=== PATIENT | male | born 1980 | race Caucasian/White ===

== ENCOUNTER 2021-07-19 15:07 | Observation (INO) ==
--- NOTE | 2021-07-19 15:18 | Emergency Department Note ---
Impression & Plan TIA (transient ischemic attack), Dizziness, HTN (hypertension) ED Provider Note NAME: MATTY ADAMS AGE: 41 SEX: M : 1980 ARRIVES VIA: Walk-In INFORMANT: Patient, ED PROVIDER(S): Manuel Mejia MD Chief Complaint: HPI: Patient presents due to concern for evaluation of some ambulatory dysfunction, heavy time as well as some difficulty with raising the left side of his mouth. The patient states that when he woke up this morning he got in bed and stumbled a bit to where he felt a little off. Patient states that he subsequently did develop some tongue heaviness and stated that he was unsure as whether or not he could hear me left side of his mouth up compared to his right. The patient states that lasted about an hour. Patient denies any fevers chills chest pain shortness of breath. The patient does have a history of hypertension but no other medical problems. Patient denies any alcohol tobacco or drug use. Patient has had some dizziness. Patient denies any nausea or vomiting. The patient denies any numbness tingling or focal weakness. Patient denies any recent falls or trauma. He does not take blood thinning medications. Patient is vaccinated for COVID-19 denies any infectious symptoms. ROS: See HPI for pertinent positives and negatives. A total of 10 systems were reviewed and otherwise negative. Past medical history: See below Surgical history: See below Social history: See below Physical Exam: GENERAL: NAD, wearing glasses, non-toxic. EYE EXAM: Normal conjunctiva. PERRL, no anisocoria and EOM's grossly intact w/o pain. OROPHARYNX: Moist mucus membranes. Grossly normal dentition. NECK: Supple, no nuchal rigidity, no adenopathy, non-tender. No signs of meningismus. FROM of the neck with good chin to chest and neck extension. No stridor. No carotid bruits auscultated. LUNGS: Clear to auscultation. Normal chest wall mechanics. HEART: NSR, no MRG. ABDOMEN: Abdomen soft, non-tender, normo-active bowel sounds, no masses, no rebound or guarding. BACK: No CVA TTP. SKIN: No rashes and no bruising. UPPER EXTREMITIES: Upper extremities are grossly normal. LOWER EXTREMITIES: Grossly normal, no edema. NEURO EXAM: A&O x3, cranial nerves II-XII grossly intact, normal speech, moves all 4 extremities on command w/o issue. Good finger to nose, no drift, no sensory deficits. Differential diagnoses: Infection, dehydration, metabolic abnormality, hypo/hyperglycemia, electrolyte disturbance, anemia, hypoxia, cardiac sources, intracerebral event, toxicologic, neurologic, as well as other pathologies. Course: Patient was seen and evaluated the bedside. Full history physical exam was performed. EKG interpreted by me Normal sinus rhythm, rate of 74, normal intervals, normal axis, T wave inversion in V2. Imaging Studies: See Below Cardiac monitoring: An order was placed for continuous cardiac monitoring. The monitor shows a rate of 75 with sinus rhythm. MDM: Patient was seen due to concern for difficulty with raising the left side of his mouth as well as some tongue heaviness. The patient has no acute stroke like symptoms at this time. NIH is 0. Patient did have bladder completed along with an EKG and CT of the head. Patient's blood work shows a normal white count H&H and platelet count. Patient's kidney function is unremarkable. CT head negative. Patient has had no recurrence of symptoms. I did speak to the on-call neurologist Dr. Sarabia who recommended the patient be admitted for MRI of the brain and angiography of the head neck. Patient does have a contrast allergy to iodine. Patient was ordered an MR combo angiography as opposed to CT angiography. Patient was ordered aspirin. Patient was admitted to the [facility] service. I did speak with YUMI Olvera and the patient was admitted by Dr. Gutierrez. Past Med/Surg History Medical History GERD (gastroesophageal reflux disease) H/O: HTN (hypertension) Surgical History History of dental surgery Family History Other Diabetes Hypertension Social History Smoking Status: Former smoker Tobacco Type: E-cigarettes / Vaping Hx Alcohol Use: No Hx Substance Use: Yes Non-Prescribed Medications: Marijuana Feels Safe at Home: Yes Immunizations: Vaccinated for COVID-19 Allergies Allergies Allergy/AdvReac Type Severity Reaction Status Date / Time iodine Allergy Anaphylaxis Unverified 07/19/21 17:27 shellfish derived Allergy Anaphylaxis Unverified 07/19/21 17:27 Home Meds Home Medications Medication Instructions Recorded Confirmed amlodipine 5 mg tablet 5 mg PO QPM 07/19/21 07/19/21 budesonide-formoterol HFA 80 2 puff INHALATION BID PRN 07/19/21 07/19/21 mcg-4.5 mcg/actuation aerosol inhaler (Symbicort) loratadine 10 mg tablet (Claritin) 10 mg PO DAILY PRN 07/19/21 07/19/21 omeprazole 20 mg capsule,delayed 20 mg PO DAILYBB 07/19/21 07/19/21 release Results & Data (ED) Vital Signs Vital Signs - 24 hr 07/19/21 15:13 07/19/21 15:31 07/19/21 17:40 Temperature 37.0 C 37.0 C Temperature Source Temporal Artery Scan Oral Pulse Rate 80 Pulse Rate [Right Finger] 67 67 Pulse Rhythm [Right Finger] Regular Pulse Strength [Right Finger] Normal Respiratory Rate 20 16 15 Respiratory Effort / Characteristics Non-Labored Spontaneous Non-Labored Respiratory Depth Normal Normal Normal Respiratory Pattern Regular Blood Pressure 147/103 H Blood Pressure [Right Arm] 163/99 H 163/99 H Blood Pressure Mean 117 Blood Pressure Mean [Right Arm] 120 120 Blood Pressure Position [Right Arm] Lying Pulse Oximetry 98 97 97 Oxygen Delivery Method Room Air Room Air Sepsis Recent Fever Within 48 Hours No Sepsis New/Unexplained Change in Mental Status No Sepsis Action Taken by Nursing No Action Required 07/19/21 18:09 Temperature Temperature Source Pulse Rate Pulse Rate [Right Finger] 66 Pulse Rhythm [Right Finger] Regular Pulse Strength [Right Finger] Respiratory Rate 16 Respiratory Effort / Characteristics Non-Labored Respiratory Depth Normal Respiratory Pattern Blood Pressure Blood Pressure [Right Arm] 164/98 H Blood Pressure Mean Blood Pressure Mean [Right Arm] 120 Blood Pressure Position [Right Arm] Lying Pulse Oximetry 98 Oxygen Delivery Method Room Air Sepsis Recent Fever Within 48 Hours Sepsis New/Unexplained Change in Mental Status Sepsis Action Taken by Snf Medications Current Medication List: was personally reviewed by me Laboratory Data Attestation: I reviewed the patient's lab results. Result diagrams: 07/19/21 15:43 07/19/21 15:43 Lab Results 07/19/21 07/19/2107/19/22 Range/Units 15:43 15:43 18:22 WBC 9.27 (4.8-10.8) K/uL RBC 4.98 (4.7-6.1) M/uL Hgb 14.4 (14.0-18.0) g/dL Hct 42.3 (42-52) % MCV 84.9 (80-100) fL MCH 28.9 (25-34) pg MCHC 34.0 (32-36) g/dL RDW Std Deviation 41.8 (36.4-46.3) fL RDW Coeff of Herber 13.5 (11.5-14.5) % Plt Count 327 (130-400) K/uL MPV 10.0 (7.4-10.4) fL Immature Gran % (Auto) 0.2 % Neut % (Auto) 55.9 % Lymph % (Auto) 34.2 % [place] % (Auto) 8.0 % Eos % (Auto) 1.5 % Baso % (Auto) 0.2 % Neut # (Auto) 5.18 (1.4-6.5) K/uL Lymph # (Auto) 3.17 (1.2-3.4) K/uL [place] # (Auto) 0.74 H (0.11-0.59) K/uL Eos # (Auto) 0.14 (0-0.5) K/uL Baso # (Auto) 0.02 (0-0.2) K/uL Immature Gran # (Auto) 0.02 (0.00-0.02) K/uL Sodium 140 (136-145) mmol/L Potassium 3.6 (3.5-5.1) mmol/L Chloride 103 (98-107) mmol/L Carbon Dioxide 30 (21-32) mmol/L Anion Gap 7 (3-11) BUN 15 (6-23) mg/dl Creatinine 1.19 (0.6-1.4) mg/dl Est Cr Clr Drug Dosing 89.2 ml/min Est GFR ( Amer) 88.6 ml/min Est GFR (Non-Af Amer) 76.5 ml/min BUN/Creatinine Ratio 12.6 (10-20) Glucose 105 H (70-99(Fasting)) mg/dl Calcium 9.4 (8.5-10.1) mg/dl Magnesium 1.7 (1.7-2.4) mg/dl Total Bilirubin 0.2 (0.2-1.0) mg/dl AST 21 (13-39) U/L ALT 29 (7-52) U/L Alkaline Phosphatase 114 H (34-104) U/L Total Protein 7.2 (6.0-8.3) gm/dl Albumin 4.5 (3.4-5.0) gm/dl Globulin 2.7 (2.5-4.0) gm/dl Albumin/Globulin Ratio 1.7 (0.9-2) SARS-CoV-2, RNA, NAAT NEGATIVE (NEGATIVE) Administered Medications Discontinued Medications Aspirin (Aspirin Chew 324 Mg) 324 mg PO NOW STA Stop: 07/19/21 17:48 Last Admin: 07/19/21 18:07 Dose: 324 mg Documented by: [id number] Gadobutrol (Gadobutrol 65ml Vial) 8.5 ml IV ONCE ONE Stop: 07/19/21 19:38 Last Admin: 07/19/21 19:34 Dose: 8.5 ml Documented by: [id number] Imaging Data Radiologist's Impression: Head CT 07/19/21 15:36 CT OF THE HEAD WITHOUT CONTRAST CLINICAL HISTORY: gait imbalance, ?speech COMPARISON STUDY: No previous studies for comparison. CT DOSE: 537.48 mGy.cm TECHNIQUE: Helical axial images of the head were obtained without IV contrast. Automated exposure control was utilized for the study. A dose lowering technique was utilized adhering to the principles of ALARA. FINDINGS: No acute intracranial hemorrhage, midline shift or mass effect is present. The ventricular system is unremarkable. The basal cisterns are patent. No extra-axial collections are present. There are no findings to suggest acute dural sinus thrombosis or acute territorial infarct. No significant calvarial abnormalities are present. Visualized portions of the sinuses and mastoid air cells are clear. IMPRESSION: No acute intracranial findings. ACT 112: Negative or not required by law. Electronically signed by: Júnior Corbin M.D. 07/19/2021 4:05 PM Brain MRI 07/19/21 17:49 MRI OF THE BRAIN WITHOUT CONTRAST CLINICAL HISTORY: TIA symptoms COMPARISON STUDY: Head CT performed earlier today. TECHNIQUE: Utilizing a 1.5 Evonne magnet and dedicated coil, multiplanar, multiecho imaging of the brain was performed without IV contrast. FINDINGS: There are no foci of restricted diffusion to suggest acute infarct. No acute intracranial hemorrhage, midline shift or mass effect is present. Brain findings normal. Ventricular system is normal. Basal cisterns are patent. There are no extra axial collections. No intracranial masses are identified on this unenhanced exam. Flow-voids for the major intracranial vessels are present. There are a few small white matter T2 hyperintense foci that measure up to 2 mm. These are of doubtful significance. Calvarial signal is normal. Orbits are unremarkable on unenhanced exam. There is no evidence for sinusitis. No mastoid fluid. IMPRESSION: No acute intracranial findings. Unremarkable unenhanced MRI of the brain. ACT 112: Negative or not required by law. Electronically signed by: Júnior Corbin M.D. 07/19/2021 7:30 PM Head MRA 07/19/21 17:49 MRA OF THE INTRACRANIAL CIRCULATION WITHOUT CONTRAST CLINICAL HISTORY: TIA symptoms COMPARISON STUDY: None. TECHNIQUE: Utilizing a 1.5 Evonne magnet and 3-D [id number] technique, unenhanced MRA of the intracranial circulation was obtained. FINDINGS: The bilateral M1, M2, A1 and A2 segments are patent. There is no central vessel occlusion. Note is made of a tiny 2 mm saccular aneurysm arising from the inferomedial aspect of the ophthalmic portion of the right internal carotid artery. No additional intracranial aneurysms are present. Posterior circulation is intact. There is an anterior communicating artery. Bilateral posterior communicating arteries are present. There is no dissection within the intracranial vessels. IMPRESSION: 1. No central vessel occlusion. 2. 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 ACT 112: Negative or not required by law. Electronically signed by: Júnior Corbin M.D. 07/19/2021 7:40 PM Neck MRA 07/19/21 17:49 MR angio neck wo/w con CLINICAL HISTORY: TIA symptoms COMPARISON STUDY: No previous studies for comparison. TECHNIQUE: Unenhanced and contrast-enhanced MRA of the neck was performed. Intravenous injection of 8.5 cc of Gadavist was uneventful. FINDINGS: The bilateral common carotid, cervical internal carotid and vertebral arteries are patent. Bilateral carotid bifurcations are unremarkable. No stenosis within these vessels is noted. There is no dissection by MRI. MRA of the head will be reported separately. There is no aneurysm within the neck. IMPRESSION: Unremarkable MRA of the neck. ACT 112: Negative or not required by law. Electronically signed by: Júnior Corbin M.D. 07/19/2021 8:01 PM Discharge Plan Visit Data Chief Complaint: TIA Symptoms Stated Complaint: DR REFERRED, DIZZINESS, SLURRED SPEAK, LIP DROOP ED Provider: Manuel Mejia Discharge Problem: TIA (transient ischemic attack), Dizziness, HTN (hypertension) Patient Disposition: Admitted As Inpatient Discharge Instructions Interventions: ED Discharge Assessment Last Done: 07/19/21 19:34
[2021-07-19 15:53] LABS: Basophils # (auto) 0.02 K/uL (0-0.2); Basophils % (auto) 0.2 %; Eosinophils # (auto) 0.14 K/uL (0-0.5); Eosinophils % (auto) 1.5 %; Hematocrit (blood only) 42.3 % (42-52); Hemoglobin 14.4 g/dL (14.0-18.0); Immature Granulocytes # (auto) 0.02 K/uL (0.00-0.02); Immature Granulocytes % (auto) 0.2 %; Lymphocytes # (auto) 3.17 K/uL (1.2-3.4); Lymphocytes % (auto) 34.2 %; Mean Corpuscular Hemoglobin 28.9 pg (25-34); Mean Corpuscular Volume 84.9 fL (80-100); Monocytes # (auto) 0.74 K/uL (0.11-0.59); Neutrophils # (auto) 5.18 K/uL (1.4-6.5); Neutrophils % (auto) 55.9 %; Platelet Count 327 K/uL (130-400); RDW Coefficient of Variation 13.5 % (11.5-14.5); RDW Standard Deviation 41.8 fL (36.4-46.3); Red Blood Count 4.98 M/uL (4.7-6.1); White Blood Count 9.27 K/uL (4.8-10.8)
--- NOTE | 2021-07-19 16:07 | CT Scan Report ---
CT OF THE HEAD WITHOUT CONTRAST CLINICAL HISTORY: gait imbalance, ?speech COMPARISON STUDY: No previous studies for comparison. CT DOSE: 537.48 mGy.cm TECHNIQUE: Helical axial images of the head were obtained without IV contrast. Automated exposure con trol was utilized for the study. A dose lowering technique was utilized adhering to the principles o f ALARA. FINDINGS: No acute intracranial hemorrhage, midline shift or mass effect is present. The ventricular system is unremarkable. The basal cisterns are patent. No extra-axial collections are present. There are no findings to suggest acute dural sinus thrombosis or acute territorial infarct. No significant calvarial abnormalities are present. Visualized portions of the sinuses and mastoid air cells are sue ar. IMPRESSION: No acute intracranial findings. ACT 112: Negative or not required by law. Electronically signed by: Júnior Corbin M.D. 07/19/2021 4:05 PM
[2021-07-19 16:16] LABS: Albumin Globulin Ratio 1.7 (0.9-2); Albumin Level 4.5 gm/dl (3.4-5.0); BUN Creatinine Ratio 12.6 (10-20); Bilirubin,Total 0.2 mg/dl (0.2-1.0); Calcium 9.4 mg/dl (8.5-10.1); Creatinine Clr Calc Pharmacy 89.2 ml/min; Est GFR (African American) 88.6 ml/min; Est GFR (Non-African American) 76.5 ml/min; Globulin 2.7 gm/dl (2.5-4.0); Magnesium 1.7 mg/dl (1.7-2.4); Potassium 3.6 mmol/L (3.5-5.1); Total Protein 7.2 gm/dl (6.0-8.3)
[2021-07-19] MEDS ORDERED: ASPIRIN CHEW 324 MG PO STA (17:47)
--- NOTE | 2021-07-19 19:11 | History & Physical Report ---
Date of Service July 19, 2021 Assessment & Plan (1) TIA (transient ischemic attack): Plan: This is a 41-year-old male with PMH of hypertension and GERD who presents with neurological changes earlier today concerning for TIA. Ambulatory dysfunction, possible speech changes and R facial droop noted earlier today that have all since resolved CT head with no acute intracranial findings ED provider discussed with Dr. Otero of neuro who recommended observation wi th MRA head/neck and MRI brain VSS, labs unremarkable, given 324mg aspirin in ED Echo with bubble study, PT, OT and speech eval per protocol Routine neurology consult Fasting lipid panel and a1c in AM Advance diet if passes dysphagia screen (2) HTN (hypertension): Plan: Will hold amlodipine for now to allow for permissive HTN for 24 hours in setting of possible ischemic event. Re-evaluate in AM DVT Ppx: SQ heparin Code status: FULL PCP: Og Dispo: Observation med/tele Patient seen in collaboration with Dr. Gutierrez. Please see addendum. History of Present Illness Chief Complaint: Neurological symptoms Primary Care Provider: Daniel Vera MD This is a 41-year-old male with PMH of hypertension and GERD who presents with strokelike symptoms from earlier today. Patient states when he got out of bed this morning he was "staggering" and fell off balance. This improved and he was able to go to work. While speaking with colleagues, felt that his tongue was heavy and felt dizzy and "in a fog". [facility], noted a slight right-sided facial droop and was directed to ED for further evaluation. All symptoms have since resolved and patient feels back to baseline, although fatigued. No swallowing issues or focal weakness. No issues with ambulation at this point. Denies any fever, chills, lightheadedness, headache, chest pain, shortness of breath, nausea, vomiting, abdominal pain, dysuria, diarrhea constipation. Allergies Allergy/AdvReac Type Severity Reaction Status Date / Time iodine Allergy Anaphylaxis Unverified 07/19/21 17:27 shellfish derived Allergy Anaphylaxis Unverified 07/19/21 17:27 Home Medications Medication Instructions Recorded Confirmed Type amlodipine 5 mg tablet 5 mg PO QPM 07/19/21 07/19/21 History budesonide-formoterol HFA 80 2 puff INHALATION BID PRN 07/19/21 07/19/21 History mcg-4.5 mcg/actuation aerosol inhaler (Symbicort) loratadine 10 mg tablet (Claritin) 10 mg PO DAILY PRN 07/19/21 07/19/21 History omeprazole 20 mg capsule,delayed 20 mg PO DAILYBB 07/19/21 07/19/21 History release Past Med/Surg History Medical History (Updated 07/19/21 @ 19:17 by Lori Lanza PA-C) GERD (gastroesophageal reflux disease) H/O: HTN (hypertension) Surgical History (Updated 07/19/21 @ 19:12 by Lori Lanza PA-C) History of dental surgery Family History Other Diabetes Hypertension Social History (Updated 07/19/21 @ 19:16 by Lori Lanza PA-C) Smoking Status: Former smoker Tobacco Type: E-cigarettes / Vaping Hx Alcohol Use: No Hx Substance Use: Yes Non-Prescribed Medications: Marijuana Feels Safe at Home: Yes Review of Systems Review of Systems: At least ten systems reviewed and negative except as noted in the HPI. Physical Exam Physical Exam: General Appearance: WD/WN, vitals as above, NAD, sitting up in bed, pleasant, conversing easily Head: normocephalic, atraumatic Eyes: normal inspection, PERRL, conjunctivae normal, anicteric sclerae ENT: external ear and nose normal, oropharynx normal Neck: normal visual inspection, trachea midline, no thyromegaly Respiratory: normal respiratory effort, lungs clear to auscultation, no wheeze, rales, rhonchi. No accessory muscle use Cardiovascular: regular rate, rhythm, no murmur, normal peripheral pulses, no BLE edema. Vessels: no JVD Chest: normal inspection of chest Abdomen/GI: normal bowel sounds, soft, nontender, no hepatosplenomegaly Extremities/Musculoskeletal: no cyanosis or clubbing, full active range of motion, extremities motor strength 5/5 Neurologic: PERRL, EOMI, accommodation nl, no face palsy, no dysarthria, CN's II-XI intact bilaterally and moves all extremities Psychiatric: A+Ox3, euthymic affect Skin: no rashes, normal color, warm/dry Results & Data Results & Data ([facility]) Vital Signs (Past 12 Hours) Vital Signs Temp Pulse Pulse Resp BP BP Pulse Ox 07/19/21 18:09 66 16 164/98 H 98 07/19/21 17:40 67 15 163/99 H 97 07/19/21 15:31 37.0 C 67 16 163/99 H 97 07/19/21 15:13 37.0 C 80 20 147/103 H 98 Laboratory Results Short CBC 07/19/21 Range/Units 15:43 WBC 9.27 (4.8-10.8) K/uL Hgb 14.4 (14.0-18.0) g/dL Hct 42.3 (42-52) % Plt Count 327 (130-400) K/uL BMP 07/19/21 15:43 Sodium 140 Potassium 3.6 Chloride 103 Carbon Dioxide 30 BUN 15 Creatinine 1.19 Glucose 105 H Calcium 9.4 Liver Function 07/19/21 Range/Units 15:43 Total Bilirubin 0.2 (0.2-1.0) mg/dl AST 21 (13-39) U/L ALT 29 (7-52) U/L Alkaline Phosphatase 114 H (34-104) U/L Albumin 4.5 (3.4-5.0) gm/dl Diagnostic Findings Head CT 07/19/21 15:36 CT OF THE HEAD WITHOUT CONTRAST CLINICAL HISTORY: gait imbalance, ?speech COMPARISON STUDY: No previous studies for comparison. CT DOSE: 537.48 mGy.cm TECHNIQUE: Helical axial images of the head were obtained without IV contrast. Automated exposure control was utilized for the study. A dose lowering technique was utilized adhering to the principles of ALARA. FINDINGS: No acute intracranial hemorrhage, midline shift or mass effect is present. The ventricular system is unremarkable. The basal cisterns are patent. No extra-axial collections are present. There are no findings to suggest acute dural sinus thrombosis or acute territorial infarct. No significant calvarial abnormalities are present. Visualized portions of the sinuses and mastoid air cells are clear. IMPRESSION: No acute intracranial findings. ACT 112: Negative or not required by law. Electronically signed by: Júnior Corbin M.D. 07/19/2021 4:05 PM Code Status & VTE Plan VTE Prophylaxis Plan VTE Prophylaxis will be ordered: Yes Supervising Physician Co-Signing Physician Notes 41-year-old very nice gentleman with PMH of HTN on amlodipine and GERD on omeprazole who reports blood pressure fairly under control while at home and has been working out since last 7 months consistently [4 times a week]/watching out diet and lost 15 pounds presented to our ED 07/19 with complaint of funny sensation on the right lip, slurring of speech and apparently right-sided facial droop associated with right ear fullness. At presentation, blood pressure in 160s/90s, neurology consulted, MRI brain/MRA head and neck ordered, ECHO, TSH/B12/folate level. Likely TIA versus ??? Saldivar's palsy. Patient denies any smoking [quit 7 years ago], drinking alcohol, uses marijuana occasionally [vapes]. Patient denies any history of [place] or stroke or blood clot in the family. 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 Follow-up with the MRI results. Permissive HTN. Await neuro recommendation Upon examination: GENERAL: Alert and oriented x3. NAD, on RA. HEENT: No pallor, no icterus. Pupils equal, round and reactive to light. Oral mucosa moist. NECK: No JVD, no neck masses. HEART: S1 and S2 heard. Regular rate and rhythm. No murmur, no gallop. RESPIRATORY SYSTEM: Normal AP diameter. No accessory muscle use. No wheezing, no crackles. ABDOMEN: Soft, bowel sounds present, nontender, no distention. CENTRAL NERVOUS SYSTEM: No facial droop. Speech is clear. Obeys simple commands. Moves extremities. EXTREMITIES: No edema, no erythema seen. I have seen and examined the patient and have discussed the case with the provider above. I agree with the assessment and plan as stated.
--- NOTE | 2021-07-19 19:31 | Magnetic Resonance Report ---
MRI OF THE BRAIN WITHOUT CONTRAST CLINICAL HISTORY: TIA symptoms COMPARISON STUDY: Head CT performed earlier today. TECHNIQUE: Utilizing a 1.5 Evonne magnet and dedicated coil, multiplanar, multiecho imaging of the bra in was performed without IV contrast. FINDINGS: There are no foci of restricted diffusion to suggest acute infarct. No acute intracranial h emorrhage, midline shift or mass effect is present. Brain findings normal. Ventricular system is norm al. Basal cisterns are patent. There are no extra axial collections. No intracranial masses are ident ified on this unenhanced exam. Flow-voids for the major intracranial vessels are present. There are a few small white matter T2 hyperintense foci that measure up to 2 mm. These are of doubtful significa nce. Calvarial signal is normal. Orbits are unremarkable on unenhanced exam. There is no evidence for sinusitis. No mastoid fluid. IMPRESSION: No acute intracranial findings. Unremarkable unenhanced MRI of the brain. ACT 112: Negative or not required by law. Electronically signed by: Júnior Corbin M.D. 07/19/2021 7:30 PM
[2021-07-19] MEDS ORDERED: GADOBUTROL 65ML VIAL IV ONE (19:37)
--- NOTE | 2021-07-19 19:42 | Magnetic Resonance Report ---
MRA OF THE INTRACRANIAL CIRCULATION WITHOUT CONTRAST CLINICAL HISTORY: TIA symptoms COMPARISON STUDY: None. TECHNIQUE: Utilizing a 1.5 Evonne magnet and 3-D [id number] technique, unenhanced MRA of the intra cranial circulation was obtained. FINDINGS: The bilateral M1, M2, A1 and A2 segments are patent. There is no central vessel occlusion. Note is made of a tiny 2 mm saccular aneurysm arising from the inferomedial aspect of the ophthalmic portion of the right internal carotid artery. No additional intracranial aneurysms are present. Poste rior circulation is intact. There is an anterior communicating artery. Bilateral posterior communicat ing arteries are present. There is no dissection within the intracranial vessels. IMPRESSION: 1. No central vessel occlusion. 2. 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 ACT 112: Negative or not required by law. Electronically signed by: Júnior Corbin M.D. 07/19/2021 7:40 PM
--- NOTE | 2021-07-19 20:02 | Magnetic Resonance Report ---
MR angio neck wo/w con CLINICAL HISTORY: TIA symptoms COMPARISON STUDY: No previous studies for comparison. TECHNIQUE: Unenhanced and contrast-enhanced MRA of the neck was performed. Intravenous injection of 8 .5 cc of Gadavist was uneventful. FINDINGS: The bilateral common carotid, cervical internal carotid and vertebral arteries are patent. Bilateral carotid bifurcations are unremarkable. No stenosis within these vessels is noted. There is no dissection by MRI. MRA of the head will be reported separately. There is no aneurysm within the ne ck. IMPRESSION: Unremarkable MRA of the neck. ACT 112: Negative or not required by law. Electronically signed by: Júnior Corbin M.D. 07/19/2021 8:01 PM
[2021-07-19] MEDS ORDERED: POLYETHYLENE (MIRALAX) 17 GM PACK PO PRN (20:42)
[2021-07-19] MEDS ORDERED: ACETAMINOPHEN 325 MG TAB PO PRN (20:42)
[2021-07-19] MEDS ORDERED: PHARMACIST DISCHARGE MED REC CONSULT PRN (20:42)
[2021-07-19] MEDS ORDERED: LORATADINE 10 MG TAB PO PRN (20:42)
[2021-07-19] MEDS ORDERED: ONDANSETRON INJ 2 MG/ML 2 ML VIAL IV PRN (20:42)
[2021-07-19] MEDS: HEPARIN SOD 5,000 UNIT/0.5 ML VIAL SQ SCH (22:37)
[2021-07-20] MEDS: HEPARIN SOD 5,000 UNIT/0.5 ML VIAL SQ SCH (06:12)
[2021-07-20] MEDS ORDERED: PANTOprazole 40 MG TAB PO SCH (06:30)
[2021-07-20 07:35] LABS: Hemoglobin 14.6 g/dL (14.0-18.0); Mean Corpuscular Hemoglobin 28.3 pg (25-34); Mean Corpuscular Hgb Conc 33.2 g/dL (32-36); Mean Corpuscular Volume 85.4 fL (80-100); Mean Platelet Volume 10.3 fL (7.4-10.4); Platelet Count 313 K/uL (130-400); RDW Coefficient of Variation 13.5 % (11.5-14.5); RDW Standard Deviation 42.4 fL (36.4-46.3); Red Blood Count 5.15 M/uL (4.7-6.1); White Blood Count 7.49 K/uL (4.8-10.8)
[2021-07-20 08:38] LABS: Potassium 4.5 mmol/L (3.5-5.1)
[2021-07-20 08:39] LABS: BUN Creatinine Ratio 13.4 (10-20); Calcium 9.2 mg/dl (8.5-10.1); Chol HDL Ratio 4.3 (0-5); Creatinine Clr Calc Pharmacy 82.6 ml/min; Est GFR (African American) 81.9 ml/min; Est GFR (Non-African American) 70.7 ml/min
[2021-07-20 08:50] LABS: Estimated Average Glucose 114 mg/dl; Hemoglobin A1C 5.6 % (4.5-5.6)
[2021-07-20 09:08] LABS: Folate (Folic Acid) 13.12 ng/ml (>5.38)
[2021-07-20] MEDS ORDERED: ASPIRIN 81 MG ECTAB PO SCH (11:00)
[2021-07-20] MEDS ORDERED: CLOPIDOGREL BISULFATE 75 MG TAB PO SCH (11:00)
--- NOTE | 2021-07-20 11:03 | Hospitalist Progress Note ---
Date of Service July 20, 2021 Assessment & Plan (1) TIA (transient ischemic attack): Plan: This is a 41-year-old male with PMH of hypertension and GERD who presents with neurological changes earlier today concerning for TIA. Ambulatory dysfunction, possible speech changes and R facial droop noted earlier today that have all since resolved CT head with no acute intracranial findings ED provider discussed with Dr. Otero of neuro who recommended observation wi th MRA head/neck and MRI brain VSS, labs unremarkable, given 324mg aspirin in ED Echo with bubble study-negative, PT, OT and speech eval per protocol-has been ambulating in the room without any difficulties Routine neurology consult -canceled Fasting lipid panel and a1c in AM -5.6 Advance diet if passes dysphagia screen TIA symptoms completely resolved Denies any more neurological symptoms and examinations remain completely normal Discussed with the neurologist and he will report on Plavix and aspirin for 21 days and continue aspirin thereafter He will have appointment with neurologist in about 4 to 6 weeks (2) HTN (hypertension): Plan: Will hold amlodipine for now to allow for permissive HTN for 24 hours in setting of possible ischemic event. Re-evaluate in AM DVT Ppx: SQ heparin Code status: FULL PCP: Og Dispo: Observation med/tele Admission and Anticipated Discharge Date Admission Date: July 19, 2021 Subjective 07/20/2021 The patient was seen and examined in medical telemetry unit He was admitted with TIA like symptoms which have completely resolved His investigations remain unremarkable including MRI, MRA and echo of the heart He wants to go home Discussed with the neurologist and will be sent home this morning Review of Systems Review of Systems: All systems reviewed and are unremarkable except as noted below Physical Exam Physical Exam: Lying in bed comfortably Constitutional: well developed, well nourished and + obese; not ill appearing Eyes: PERRL, conjunctivae normal, anicteric sclerae ENMT: external ear and nose normal, oropharynx normal Neck: trachea midline, no thyromegaly Respiratory: normal respiratory effort, lungs clear to auscultation Cardiovascular: RRR, no murmur, no edema Gastrointestinal (Abdomen): normal bowel sounds, soft, nontender, no hepatosplenomegaly Musculoskeletal: no cyanosis or clubbing, extremities motor strength 5/5 Neurologic: PERRL, EOMI, accommodation nl, no face palsy, no dysarthria Results & Data Results & Data ([facility]) Vital Signs (Past 12 Hours) Vital Signs Temp Pulse Pulse Resp BP Pulse Ox 07/20/21 07:30 54 L 07/20/21 07:18 36.8 C 71 18 133/92 99 07/20/21 03:15 36.6 C 58 L 18 105/66 97 07/20/21 00:19 36.7 C 64 18 124/67 98 07/19/21 23:07 57 L Laboratory Results Short CBC 07/20/21 Range/Units 06:33 WBC 7.49 (4.8-10.8) K/uL Hgb 14.6 (14.0-18.0) g/dL Hct 44.0 (42-52) % Plt Count 313 (130-400) K/uL BMP 07/20/21 06:33 Sodium 140 Potassium 4.5 D Chloride 104 Carbon Dioxide 31 BUN 17 Creatinine 1.27 Glucose 89 Calcium 9.2 (1) HTN (hypertension) Hypertension type: unspecified Qualified Code(s): I10 - Essential (primary) hypertension
[2021-07-20] MEDS ORDERED: STROKE PATIENT DISCHARGE STA (11:14)
[2021-07-20] MEDS ORDERED: ATORVASTATIN 40 MG TAB PO SCH (11:15)
--- NOTE | 2021-07-20 16:17 | Electrocardiogram Report ---
Test Reason : Blood Pressure : / mmHG Vent. Rate : 074 BPM Atrial Rate : 074 BPM P-R Int : 148 ms QRS Dur : 078 ms QT Int : 366 ms P-R-T Axes : 073 065 062 degrees QTc Int : 406 ms Normal sinus rhythm Possible Left atrial enlargement Septal infarct , age undetermined Abnormal ECG No previous ECGs available Confirmed by Michael Hsieh ([id number]) on 07/20/2021 4:17:07 PM Referred By: REFERRED SELF Confirmed By:Michael Hsieh
--- NOTE | 2021-07-21 08:31 | Discharge Summary ---
Date of Service July 21, 2021 Admission HPI Per Admitting Provider Chief Complaint: Neurological symptoms Primary Care Provider: Daniel Vera MD This is a 41-year-old male with PMH of hypertension and GERD who presents with strokelike symptoms from earlier today. Patient states when he got out of bed this morning he was "staggering" and fell off balance. This improved and he was able to go to work. While speaking with colleagues, felt that his tongue was heavy and felt dizzy and "in a fog". During a video appointment with [facility] provider earlier today, noted a slight right-sided facial droop and was directed to ED for further evaluation. All symptoms have since resolved and patient feels back to baseline, although fatigued. No swallowing issues or focal weakness. No issues with ambulation at this point. Denies any fever, chills, lightheadedness, headache, chest pain, shortness of breath, nausea, vomiting, abdominal pain, dysuria, diarrhea constipation. Admission Exam Per Admitting Provider Physical Exam: General Appearance:WD/WN, vitals as above, NAD, sitting up in bed, pleasant, conversing easily Head: normocephalic, atraumatic Eyes:normal inspection, PERRL, conjunctivae normal, anicteric sclerae ENT: external ear and nose normal, oropharynx normal Neck: normal visual inspection, trachea midline, no thyromegaly Respiratory:normal respiratory effort, lungs clear to auscultation, no wheeze, rales, rhonchi. No accessory muscle use Cardiovascular: regular rate, rhythm, no murmur, normal peripheral pulses, no BLE edema. Vessels: no JVD Chest: normal inspection of chest Abdomen/GI: normal bowel sounds, soft, nontender, no hepatosplenomegaly Extremities/Musculoskeletal: no cyanosis or clubbing, full active range of motion, extremities motor strength 5/5 Neurologic: PERRL, EOMI, accommodation nl, no face palsy, no dysarthria, CN's II-XI intact bilaterally and moves all extremities Psychiatric:A+Ox3, euthymic affect Skin: no rashes, normal color, warm/dry Principal Diagnosis Possible TIA,HTN Discharge Exam Lying in bed comfortably Constitutional well developed, well nourished and + obese; not ill appearing Eyes PERRL, conjunctivae normal, anicteric sclerae ENMT external ear and nose normal, oropharynx normal Neck trachea midline, no thyromegaly Respiratory normal respiratory effort, lungs clear to auscultation Cardiovascular RRR, no murmur, no edema Gastrointestinal (Abdomen) normal bowel sounds, soft, nontender, no hepatosplenomegaly Musculoskeletal no cyanosis or clubbing, extremities motor strength 5/5 Neurologic PERRL, EOMI, accommodation nl, no face palsy, no dysarthria Discharge Data Allergies Allergy/AdvReac Type Severity Reaction Status Date / Time iodine Allergy Severe Anaphylaxis Verified 07/19/21 20:53 shellfish derived Allergy Severe Anaphylaxis Verified 07/19/21 20:53 Consultations 07/19/21 17:56 ED Decision to Admit Stat Ordered Studies 07/19/21 15:36 CT head/brain wo con Stat 07/19/21 17:49 MR angio head wo con Stat MR angio neck wo/w con Stat MR brain wo con Stat Hospital Course (1) TIA (transient ischemic attack): This is a 41-year-old male with PMH of hypertension and GERD who presents with neurological changes earlier today concerning for TIA. Ambulatory dysfunction, possible speech changes and R facial droop noted earlier today that have all since resolved CT head with no acute intracranial findings ED provider discussed with Dr. Otero of neuro who recommended observation with MRA head/neck and MRI brain VSS, labs unremarkable, given 324mg aspirin in ED Echo with bubble study-negative, PT, OT and speech eval per protocol-has been ambulating in the room without any difficulties Routine neurology consult -canceled Fasting lipid panel and a1c in AM -5.6 Advance diet if passes dysphagia screen TIA symptoms completely resolved Denies any more neurological symptoms and examinations remain completely normal Discussed with the neurologist and he will report on Plavix and aspirin for 21 days and continue aspirin thereafter He will have appointment with neurologist in about 4 to 6 weeks (2) HTN (hypertension): Will hold amlodipine for now to allow for permissive HTN for 24 hours in setting of possible ischemic event. Re-evaluate in AM DVT Ppx: SQ heparin Code status: FULL PCP: Og Dispo: Observation med/tele Total Time Total Time Spent Total Time Spent (In Minutes): 35 minutes Discharge Plan Discharge Items Patient Disposition: Home - Self-Care Reason For Visit: TIA Discharge Diagnosis: Possible TIA,HTN Condition on Discharge: Good Activity: Resume your previous activity Non-emergency contact: Primary Care Provider Call non-emergency contact if: you have any medication questions and your symptoms worsen Follow-up/Referrals: Daniel Vera MD [Primary Care Provider] - (Date & Time 07/22/2021 7:40 AM Provider Pasha Camarena PA-C Department General Internal Medicine [facility] PLEASE NOTE THAT YOUR APPOINTMENT THAT WAS PREVIOUSLY SCHEDULED FOR TODAY HAS BEEN CANCELLED. PLEASE FOLLOW UP WITH YOUR PROVIDER ON 07/22/21 AT 7:40AM. THANK YOU) Diet: Regular Addtl Attending Provider Instructions: Please keep taking Plavix and aspirin for 21 days and then [facility] within 3 to 4 weeks Please give appointment with your healthcare providers Pending Studies at Discharge: No Stand-Alone Forms: Medications to Prevent Stroke, [facility] citysocializer, Smoking Cessation Medications and DC Order Prescriptions: New clopidogrel 75 mg Tablet 75 mg PO QAM 21 Days Qty: 21 RF: 0 aspirin 81 mg Tablet,Delayed Release (Dr/Ec) 81 mg PO QAM 30 Days Qty: 30 RF: 0 atorvastatin [Lipitor] 40 mg tablet 40 mg PO DAILY Qty: 30 RF: 0 pantoprazole 40 mg Tablet,Delayed Release (Dr/Ec) 40 mg PO DAILYBB 30 Days Qty: 30 RF: 0 Continued loratadine [Claritin] 10 mg Tablet 10 mg PO DAILY PRN (Reason: Allergy Symptoms) RF: 0 amlodipine 5 mg tablet 5 mg PO QPM RF: 0 budesonide-formoterol [Symbicort] 80-4.5 mcg/actuation HFA aerosol inhaler 2 puff INHALATION BID PRN (Reason: Wheezing) RF: 0 Discontinued omeprazole 20 mg capsule,delayed release(DR/EC) 20 mg PO DAILYBB RF: 0 Discharge Orders: Discharge Order (Routine); Ordered 07/20/21 Ordered By: Zaid Charles Admission Data Admit Date/Time: 07/19/21 19:09 Attending Provider: Zaid Charles Admit Provider: Fanny Gutierrez Primary Care Provider: Daniel Vera Other Providers: Fanny Gutierrez Other Interventions: Discharge Summary Assessment (RN) Last Done: 07/20/21 11:32
--- NOTE | 2021-07-21 15:33 | Pharmacy Report ---
Pharmacist Stroke Counseling - Date of Service July 21, 2021 - Scope: Pharmacy has been consulted to provide medication discharge counseling for this patient admitted with transient ischemic attack as per the Pharmacist Discharge Counseling for Stroke Patients Protocol. - Medications on Discharge: Home Medications Medication Instructions Recorded Confirmed amlodipine 5 mg tablet 5 mg PO QPM 07/19/21 07/19/21 budesonide-formoterol HFA 80 2 puff INHALATION BID PRN 07/19/21 07/19/21 mcg-4.5 mcg/actuation aerosol inhaler (Symbicort) loratadine 10 mg tablet (Claritin) 10 mg PO DAILY PRN 07/19/21 07/19/21 New Rx's Medication Instructions Recorded aspirin 81 mg tablet,delayed 81 mg PO QAM 30 Days #30 tab 07/20/21 release atorvastatin 40 mg tablet (Lipitor) 40 mg PO DAILY #30 tab 07/20/21 clopidogrel 75 mg tablet 75 mg PO QAM 21 Days #21 tab 07/20/21 pantoprazole 40 mg tablet,delayed 40 mg PO DAILYBB 30 Days #30 tab 07/20/21 release - Action: The above medications, specifically ones for stroke treatment/prophylaxis, have been reviewed in detail with the patient prior to discharge. This includes indication, common adverse reactions, drug interactions, and medication administration. Medication counseling has been employed using the teach-back method to ensure understanding. - Outcome: The patient have demonstrated understanding of the medications. Additional comments: Spoke over the phone with patient today- he was receptive to counseling. Reviewed new medications to prevent stroke including Aspirin, Atorvastatin, plavix for 3 weeks only, & stopping prilosec for protonix. Discussed why they are being used and common side effects in great detail. Reviewed how to use the medications, what to do if doses are missed, common drug interactions, common side effects, what to watch out for while using the medications. Pt verbalized understanding and restated the killian points of each medication. Patient was not aware that he would be starting on all the above new meds and was not sure that he would be compliant with them especially the Atorvastatin. I emphasized importance of lowering cholesterol to prevent future TIA/ stroke and recommended starting the Atorvastatin and in the future he could try to control cholesterol with diet and exercise as well which might result in a lowered dose of Statin upon discussion with PCP. Thank you for allowing pharmacy to be involved in the care of this patient. Please call [phone] with any additional questions
== END 2021-07-20 12:20 | disposition home or self-care (01) ==
LOC: ED 15:07 → 2W 15:07 → SUATTDRO 19:09 → 2W 19:34